=== PATIENT | female | born 1990 | race Caucasian/White ===

== ENCOUNTER 2021-02-16 14:42 | Outpatient (CLI) | payer BC ==
[~2021-02-16 14:42] MED LIST: Magnevist 469MG/ML 20 ML VIAL ONE
== END 2021-02-16 14:43 | disposition home or self-care (01) ==
LOC: BICMRI 14:42
PROVIDERS: ATTEND Physician Assistant
DX: H53.9 Unspecified visual disturbance (principal)
CPT/HCPCS: 70553; A9579